=== PATIENT | female | born 1950 ===

== ENCOUNTER 2020-12-08 09:15 | Day surgery (SDC) | payer MEDICARE, OTHER ==
[~2020-12-08] VITALS: Ht 157.5 cm; Wt 54.8 kg
[2020-12-08] VITALS (10 sets, daily range): BP systolic 114–156; BP diastolic 31–62
[~2020-12-08 09:15] MED LIST: ANTACID SUSP 30 ML UDC (MYLANTA) PO PRN; BENZONATATE 100 MG (TESSALON) CAPSULE PO PRN; MELATONIN 3 MG TABLET PO PRN; MILK OF MAGNESIA 400 MG/5 ML 30 ML UDC PO PRN; NITROGLYCERIN 0.4 MG SL TABS BTL 25'S SL PRN; ONDANSETRON 4 MG/2 ML (SDV) Z0FRAN IV PRN; PATIENT MAY USE OWN MEDS, ALL PO SCH; morphine INJ 4 MG/ML 1 ML (VIAL/SYRINGE) IV PRN
[2020-12-08] MEDS ORDERED: REGADENOSON 0.4 MG/5 ML SYR (LEXISCAN) IV ONE ×2 (10:30→11:32)
--- NOTE | 2020-12-08 10:34 | Consultation-Cardiology ---
HPI-Cardiology Cardiology Consultation Date of Consultation 12/08/20 Date of Admission Time Seen by Provider: 10:15 Indication: chest pain HPI Patient is a 70 y/o female with hx of HTN, DM, tobaccoism. Presented to the ER in [place], [place] with complaints of atypical chest pain with mid to upper back pain intermittently for the past 3 days, increasing in frequency. Associated left jaw and arm pain and nausea. Denies any increased dyspnea, dizziness/lightheadedness or peripheral edema. Denies any hx of CAD. Currently denies any active chest pain. Home Medications & Allergies Allergies: Coded Allergies: amoxicillin (Verified Allergy, Unknown, 12/08/20) metformin (Verified Allergy, Unknown, 12/08/20) Home Medication List Reviewed: Yes LYS-Vhyxvu-Pdrkkt Hx Patient Social History Employed/Student: retired Smoking Status: Current Everyday Smoker Have you traveled recently?: No Alcohol Use?: No Past Medical History HTN, DM, Tobaccoism Review of Systems-General Review of Systems Constitutional: see HPI; No dizziness, No fever; malaise EENTM: see HPI, no symptoms reported; No blurred vision, No double vision Respiratory: see HPI; No dyspnea on exertion, No orthopnea Cardiovascular: see HPI, chest pain; No Hx of Intervention, No syncope Gastrointestinal: No abdominal pain Genitourinary: no symptoms reported, see HPI Musculoskeletal: see HPI, back pain, joint pain Skin: No lesions, No pruritus, No rash Psychiatric/Neurological: Denies Anxiety, Denies Depressed Reviewed Test Results Reviewed Test Results Lab Laboratory Tests Test 12/08/20 10:33 12/08/20 10:40 Range/Units Glucometer 148 H 70-110 MG/DL White Blood Count 8.7 4.3-11.0 10^3/uL Red Blood Count 4.33 3.80-5.11 10^6/uL Hemoglobin 12.5 11.5-16.0 g/dL Hematocrit 39 35-52 % Mean Corpuscular Volume 89 80-99 fL Mean Corpuscular Hemoglobin 29 25-34 pg Mean Corpuscular Hemoglobin Concent 32 32-36 g/dL Red Cell Distribution Width 12.6 10.0-14.5 % Platelet Count 284 130-400 10^3/uL Mean Platelet Volume 9.0 9.0-12.2 fL Sodium Level 136 135-145 MMOL/L Potassium Level 4.4 3.6-5.0 MMOL/L Chloride Level 99 98-107 MMOL/L Carbon Dioxide Level 25 21-32 MMOL/L Anion Gap 12 5-14 MMOL/L Blood Urea Nitrogen 25 H 7-18 MG/DL Creatinine 0.69 0.60-1.30 MG/DL Estimat Glomerular Filtration Rate 84 BUN/Creatinine Ratio 36 Glucose Level 141 H 70-105 MG/DL Calcium Level 9.8 8.5-10.1 MG/DL Troponin I < 0.028 <0.028 NG/ML Triglycerides Level 254 H <150 MG/DL Cholesterol Level 278 H < 200 MG/DL LDL Cholesterol Direct 204 H 1-129 MG/DL VLDL Cholesterol 51 H 5-40 MG/DL HDL Cholesterol 48 40-60 MG/DL Physical Exam Physical Exam Vital Signs Vital Signs - First Documented Capillary Refill : Height, Weight, BMI Height: '" Weight: lbs. oz. kg; BMI Method: General Appearance: No Apparent Distress, WD/WN HEENT: PERRL/EOMI Neck: Non Tender, Supple Respiratory: Chest Non Tender, Lungs Clear Cardiovascular: Regular Rate, Rhythm, No JVD, No Murmur Gastrointestinal: Non Tender, Soft Back: No CVA Tenderness Extremity: Non Tender, No Calf Tenderness Neurologic/Psychiatric: Alert, Oriented x3 A/P-Cardiology Admission Diagnosis Chest pain HTN DM Tobaccoism Assessment/Plan Chest pain, atypical with mid to upper back pain with associated left arm and jaw pain, nausea. Currently pain free. EKG done at [facility] reported as SR with PVCs. Initial troponin negative. I will repeat EKG. Multiple risk factors for underlying CAD, planning to evaluate stress test this morning. HTN- restart home blood pressure medications and continue to monitor. Questionable HLP, I will evaluate lipid profile DM- patient reports poor control. Management per medical services Tobaccoism- educated on the imporance of smoking cessation Fam hx CAD Thank you for allowing us to participate in the management of Ms. Newell. This is Herlinda Soler PA-C, as a scribe for Dr. Sandoval. Patient was seen and evaluated with Herlinda, has been complaining of left shoulder pain radiating to left arm and left side of her neck. Has chronic cough. No syncope or near syncopal episode. EKG did not show any acute abnormality, cardiac enzymes second set is still n ormal. We will proceed with Lexiscan Myoview stress test. Restart home medication for hypertension Noted to have hyperlipidemia with LDL 207, need to be initiated on statin. Patient is diabetic, managed by primary care physician Educated on smoking cessation. HERLINDA ARTEAGA Dec 08, 2020 10:34 HERLINDA SANDOVAL MD Dec 08, 2020 11:41
[2020-12-08 10:49] LABS: HEMATOCRIT 39 % (35-52); HEMOGLOBIN 12.5 g/dL (11.5-16.0); MEAN CORPUSCULAR HEMOGLOBIN 29 pg (25-34); MEAN CORPUSCULAR HGB CONC 32 g/dL (32-36); MEAN CORPUSCULAR VOLUME 89 fL (80-99); PLATELET COUNT 284 10^3/uL (130-400); WHITE BLOOD COUNT 8.7 10^3/uL (4.3-11.0)
[2020-12-08] MEDS ORDERED: CATHETER FLUSH 10 ML SYR IV PRN (11:00)
[2020-12-08 11:06] LABS: CHLORIDE 99 MMOL/L (98-107); POTASSIUM 4.4 MMOL/L (3.6-5.0); SODIUM 136 MMOL/L (135-145)
[2020-12-08 11:08] LABS: CALCIUM 9.8 MG/DL (8.5-10.1); TRIGLYCERIDES 254 MG/DL (<150); VLDL CHOLESTEROL 51 MG/DL (5-40)
[2020-12-08 11:09] LABS: GLUCOSE 141 MG/DL (70-105)
[2020-12-08 11:10] LABS: CARBON DIOXIDE 25 MMOL/L (21-32)
[2020-12-08 11:12] LABS: CREATININE SERUM 0.69 MG/DL (0.60-1.30); GFR ESTIMATED 84
[2020-12-08 11:13] LABS: BUN/CREATININE RATIO 36
[2020-12-08 11:14] LABS: CHOLESTEROL 278 MG/DL (< 200); HDL CHOLESTEROL 48 MG/DL (40-60)
--- NOTE | 2020-12-08 13:46 | Cardiology Stress Test Report ---
Stress Test Report Date of Procedure/Referring: Date of Procedure: Dec 08, 2020 PCP Prerna Herr MD Admitting Physician No,Local Physician Indications: CP Baseline Heart Rate: 82 Baseline Blood Pressure: Blood Pressure Systolic: 156 Blood Pressure Diastolic: 62 Baseline Vitals Vital Signs Date Time Temp Pulse Resp B/P (MAP) Pulse Ox O2 Delivery O2 Flow Rate FiO2 12/08/20 09:00 36.6 73 29 146/54 (84) 100 Nasal Cannula 2.00 Baseline EKG: Baseline EKG: NSR Summary After explaining the procedure to the patient, she signed a consent and then brought to the stress nuclear laboratory. Patient received 0.4 mg Lexiscan for stress test, ECG, heart rate and blood pressure were monitored continuously. Resting and stress dose of radio tracer were injected, imaging was acquired and reviewed in short axis, horizontal long axis and vertical long axis views. TID: 1.52 SSS: 0 SDS: 0 EF: 77 1. Patient tolerated Lexiscan well, develop shortness of breath with the Lexiscan injection resolved later in the test. 2. Transient ischemic dilatation 1.52 suggestive of multivessel coronary artery disease 3. Decreased uptake involving the whole anterior wall anterior apex and extending to the inferior wall. Mild reversibility was noted 4. Normal left ventricular size, normal contractility, ejection fraction 77% HERLINDA RHODES MD Dec 08, 2020 13:46
[2020-12-08] MEDS: ASPIRIN E.C. 81 MG (ECOTRIN) TAB PO SCH (14:08)
[2020-12-08] MEDS: inSUlin ASPART (NovoLOG) 1 UNIT/0.01 ML (CHARGE PER UNIT) SC SCH ×3 (14:08→20:45)
[2020-12-08] MEDS: NS IV 1000 ML 1,000 ML IV SCH ×2 (14:08→17:35)
--- NOTE | 2020-12-08 14:20 | Conscious Sedation/ASA ---
Conscious Sedation Pre-Proced Time 14:20 ASA Score 3 For ASA 3 and 4: Consider anesthesia and medical clearance. Also, for patients with a history of failed moderate sedation consider anesthesia. Airway Lungs Heart ASA score ASA 1: a normal healthy patient ASA 2: a patient with a mild systemic disease (mid diabetes, controlled hypertension, obesity x ASA 3: a patient with a severe systemic disease that limits activity (angina, COPD, prior Myocardial infarction) ASA 4: a patient with an incapacitating disease that is a constant threat to life (CHF, renal failure) ASA 5: a moribund patient not expected to survive 24 hrs. (ruptured aneurysm) ASA 6: a declared brain- patient whose organs are being harvested. For emergent operations, add the letter E after the classification Mallampati Classification Grade 3 Sedation Plan Analgesia, Amnesia, Plan communicated to team members, Discussed options with patient/fam, Discussed risks with patient/fam The patient is an appropriate candidate to undergo the planned procedure, sedation, and anesthesia. The patient immediately re-assessed prior to indication. HERLINDA RHODES MD Dec 08, 2020 14:20
[2020-12-08] MEDS ORDERED: LIDOCAINE 1% INJ 20 ML 20 ML VIAL ONE ×2 (14:25→15:47)
[2020-12-08] MEDS ORDERED: NS IV 1000 ML 0 ML ONE (14:25)
[2020-12-08] MEDS ORDERED: HEParin (CATH LAB) 2,000 ML IV ONE (14:25)
[2020-12-08] MEDS ORDERED: MIDAZOLAM 5 MG/5 ML (VERSED) VIAL ONE (14:48)
[2020-12-08] MEDS ORDERED: fentaNYL INJ 100 MCG/2 ML AMP ONE (14:48)
[2020-12-08] MEDS ORDERED: LISI10TA25 PO (15:20)
[2020-12-08] MEDS ORDERED: CHOL100048 PO (15:20)
[2020-12-08] MEDS ORDERED: DIPH25CA79 PO (15:20)
[2020-12-08] MEDS ORDERED: VITA100T8 PO (15:20)
[2020-12-08] MEDS ORDERED: GARL1TAB2 PO (15:20)
[2020-12-08] MEDS ORDERED: ASCO100024 PO (15:20)
[2020-12-08] MEDS ORDERED: GLBR5T PO (15:20)
[2020-12-08] MEDS ORDERED: FEXO180T84 PO (15:20)
[2020-12-08] MEDS ORDERED: ASPI325T32 PO (15:20)
[2020-12-08] MEDS ORDERED: MULT-1136 PO (15:20)
[2020-12-08] MEDS ORDERED: HEParin 1000 UNIT/ML (10ML VIAL) FOR BOLUS ONE (15:32)
[2020-12-08] MEDS ORDERED: NITRO DRIP 25000 MCG/D5W 0 ML IV ONE (15:32)
[2020-12-08] MEDS ORDERED: VERAPAMIL 5 MG/2 ML (CALAN) VIAL IV ONE (15:32)
[2020-12-08] MEDS ORDERED: PATIENT MAY USE OWN MEDS, ALL PO SCH (16:15)
--- NOTE | 2020-12-08 16:16 | Cardiac Cath Report ---
Cardiac Cath Report Physician (s)/Construction Scheduler (s) Physician HERLINDA RHODES MD Pre-Procedure Diagnosis Pre-Procedure Diagnosis: Chest pain, coronary artery disease Post-Procedure Note Procedure Start Date: Dec 08, 2020 Name of Procedure: Left heart catheterization Findings/Procedure Note PROCEDURE NOTE: 70-year-old lady with history of hypertension, hyperlipidemia, diabetes mellitus and tobaccoism, admitted with chest pain, had an abnormal stress test, scheduled for cardiac catheterization possible PTCA. After explaining the procedure to the patient, all pros and cons were explained, all questions were answered. The patient signed the consent and then she was placed on the cardiac catheterization laboratory. Groin was prepped SL fashion local anesthesia was used. Sheath placed in the right femoral artery. Seema right and left catheter were used to access the coronary system. Seema right catheter was prolapsed to the left ventricular cavity, pressure was measured, pullback LV to aorta was done. At the end of the procedure the sheath was removed. Manual pressure applied FINDINGS: Hemodynamics LV 161/18, end-diastolic pressure of 18 Aorta 157/52 mean of 92 ANATOMY: Left Main is free of obstructive disease Left Anterior Descending is slightly tortuous with 40 to 50% stenosis at the mid LAD nonobstructive disease Left Circumflex has mild disease nonobstructive disease Right Coronary Artery has 50% stenosis long lesion nonobstructive disease LV Gram was not done, pressure was measured CONCLUSION: 1. Mild to moderate coronary artery disease nonobstructive disease 2. Baseline hypertension with hypertensive changes. DISCUSSION AND RECOMMENDATION: Medical therapy is recommended no intervention is warranted, abnormal stress test is probably due to extracardiac attenuation Anesthesia Type: Conscious Sedation Estimated blood loss (mL): 15 ml Contrast Amount: 48 ml Total Radiation Dose: 207 mGy Post-Procedure Diagnosis Post-operative diagnosis: Chest pain Coronary artery disease Hypertension Hyperlipidemia Diabetes mellitus HERLINDA RHODES MD Dec 08, 2020 16:16
--- NOTE | 2020-12-08 16:23 | History & Physical-Hospitalist ---
History of Present Illness HPI/Chief Complaint Chandrika Newell is a 70 year old female with PMH HTN, T2DM, tobacco abuse, who presented with back pain. She says it started Tuesday. It started with pain in the back of her head which radiated to her neck, arms, and back. She also had associated nausea and vomiting. She denies diaphoresis. She never had chest pain or shortness of breath. She has no history of CAD. Source: patient Exam Limitations: no limitations Date Seen 12/08/20 Time Seen by a Provider: 13:45 Attending Physician Prerna Herr MD PCP No,Local Physician Referring Physician Date of Admission Dec 08, 2020 at 08:55 Home Medications & Allergies Home Medications Reviewed patient Home Medication Reconciliation performed by pharmacy medication reconciliations blood bank laboratory technician and/or nursing. Patients Allergies have been reviewed. Allergies Allergies Coded Allergies amoxicillin (Verified Allergy, Unknown, 12/08/20) metformin (Verified Allergy, Unknown, 12/08/20) Past Mgqpuoa-Ojilba-Jrtibm Hx Patient Social History Employed/Student: retired Tobacco Use?: Yes Tobacco type used: Cigarettes Smoking Status: Current Everyday Smoker Smokeless Tobacco Frequency: Never a User Use of E-Cig and/or Vaping dev: No Substance use?: No Alcohol Use?: No Pt feels they are or have been: No Immunizations Up To Date Second COVID19 Vaccination Ankur: May 2020 Current Status Advance Directives: Unable to obtain Advance Directive Location: Unable to obtain copy Communicates: Verbally Primary Language: Romansh Preferred Spoken Language: Romansh Is interpretation needed?: No Sensory deficits: Vision impairment Implanted or Applied Medical D: None Past Medical History Hypertension Diabetes, Non-Insulin dep Family Medical History No Pertinent Family Hx Review of Systems Constitutional: no symptoms reported EENTM: no symptoms reported Respiratory: no symptoms reported Cardiovascular: no symptoms reported Gastrointestinal: nausea, vomiting Genitourinary: no symptoms reported Musculoskeletal: back pain, neck pain Skin: no symptoms reported Psychiatric/Neurological: Headache Physical Exam Physical Exam Vital Signs Vital Signs - First Documented Capillary Refill : Height, Weight, BMI Height: '" Weight: lbs. oz. kg; BMI Method: General Appearance: No Apparent Distress, WD/WN HEENT: PERRL/EOMI, Pharynx Normal Neck: Normal Inspection, Supple Respiratory: Lungs Clear, Normal Breath Sounds, No Respiratory Distress Cardiovascular: Regular Rate, Rhythm, No Edema, No Murmur Gastrointestinal: Normal Bowel Sounds, Non Tender, Soft Back: Normal Inspection, No Vertebral Tenderness; No Muscle Spasm Extremity: Normal Inspection, Non Tender, No Pedal Edema Neurologic/Psychiatric: Alert, Oriented x3, No Motor/Sensory Deficits, Normal Mood/Affect Skin: Normal Color, Warm/Dry Results Results/Procedures Labs Laboratory Tests 12/08/20 10:40 Patient resulted labs reviewed. Assessment/Plan Admission Diagnosis Chest pain Admission Status: Observation Assessment and Plan Atypical chest pain Troponin within normal limits Cardiology consulted Stress test today HLD Begin Lipitor HTN T2DM Resume home meds Tobacco abuse Nicotine patch DVT prophylaxis: Lovenox Diagnosis/Problems Diagnosis/Problems (1) Atypical chest pain Status: Acute (2) HTN (hypertension) Status: Chronic (3) T2DM (type 2 diabetes mellitus) Status: Chronic (4) HLD (hyperlipidemia) Status: Acute Qualifiers: Hyperlipidemia type: mixed hyperlipidemia Qualified Codes: E78.2 - Mixed hyperlipidemia (5) Tobacco abuse Status: Chronic AMBREEN MCKEON MD Dec 08, 2020 16:23
[2020-12-08] MEDS ORDERED: ENOXAPARIN 40 MG/0.4 ML (LOVENOX) SYR SQ SCH (20:30)
[2020-12-09] VITALS: BP 105/35
[2020-12-09 04:00] VITALS: BP 127/45
[2020-12-09] MEDS: NS IV 1000 ML 1,000 ML IV SCH ×4 (04:54→10:43)
[2020-12-09] MEDS ORDERED: glyBURIDE 5 MG (MICRONASE) TAB PO SCH (07:00)
[2020-12-09] MEDS: inSUlin ASPART (NovoLOG) 1 UNIT/0.01 ML (CHARGE PER UNIT) SC SCH ×2 (07:25→10:43)
[2020-12-09 08:11] VITALS: BP 154/60
[2020-12-09] MEDS: ASPIRIN E.C. 81 MG (ECOTRIN) TAB PO SCH (08:18)
--- NOTE | 2020-12-09 08:35 | Cardiology Progress Note ---
Subjective Date Seen by Provider: Dec 09, 2020 Time Seen by Provider: 08:32 Subjective/Events-last exam Patient was seen and evaluated, sitting in bed, eating breakfast, feeling better, her arm is feeling better. Review of Systems General: No Chills, No Night Sweats, No Fatigue, No Malaise, No Appetite, No Other HEENT: No Head Aches, No Visual Changes, No Eye Pain, No Ear Pain, No Dysphasia, No Sinus Congestion, No Post Nasal Drip, No Sore Throat, No Other Pulmonary: No Dyspnea, No Cough, No Pleuritic Chest Pain, No Other Cardiovascular: No: Chest Pain, Palpitations, Orthopnea, Paroxysmal Noc. Dyspnea, Edema, Lt Headedness, Other Objective-Cardiology Exam Last Set of Vital Signs Vital Signs 12/09/20 12/09/20 08:11 08:13 Temp 36.8 Pulse 82 Resp 22 B/P (MAP) 154/60 (91) Pulse Ox 94 O2 Delivery Room Air I&O Intake and Output 12/09/20 00:00 Intake Total 600 ml Balance 600 ml Intake Oral 600 ml # Voids 6 Daily Weight Change No General: Alert, Oriented X3, Cooperative HEENT: Atraumatic, PERRLA Neck: Supple, No JVD, No Thyromegaly Lungs: Clear to Auscultation, Normal Air Movement Heart: Regular Rate, Normal S1, Normal S2, No Murmurs Abdomen: Normal Bowel Sounds, Soft, No Tenderness, No Hepatosplenomegaly, No Masses Extremities: No Clubbing, No Cyanosis, No Edema, Normal Pulses, No Tenderness/S welling Skin: No Rashes, No Breakdown, No Significant Lesion Neuro: Normal Gait, Normal Speech, Strength at 5/5 X4 Ext, Normal Tone, Sensation Intact Psych/Mental Status: Mental Status NL, Mood NL Results Lab Laboratory Tests 12/08/20 10:40 A/P-Cardiology Admission Diagnosis Chest pain HTN DM Tobaccoism Assessment/Plan Chest pain, atypical with mid to upper back pain with associated left arm and jaw pain. Feeling better. I have ordered a chest x-ray PA and lateral due to history of tobaccoism. Continue to monitor Abnormal stress test on December 08, 2020 followed by cardiac catheterization showing mild to moderate coronary artery disease nonobstructive disease. Medical therapy is recommended Hypertension, restarted on home medication, monitor blood pressure Hyperlipidemia, started on Lipitor, change in dose to 20 mg daily. DM- patient reports poor control. Management per medical services Tobaccoism- educated on the imporance of smoking cessation Fam hx CAD Okay for discharge from cardiology standpoint after her chest x-ray, follow-up as an outpatient HERLINDA RHODES MD Dec 09, 2020 08:35
[2020-12-09] MEDS ORDERED: NICOTINE PATCH REMOVAL TP SCH (08:59)
[2020-12-09] MEDS ORDERED: PANTOPRAZOLE 40 MG (PROTONIX) TAB PO SCH (09:00)
[2020-12-09] MEDS ORDERED: NICOTINE 21 MG (NICODERM) PATCH TD SCH (09:00)
[2020-12-09] MEDS ORDERED: lisINopril 10 MG (PRINIVIL) TABLET PO SCH (09:00)
--- NOTE | 2020-12-09 09:44 | Diagnostic Imaging Report ---
Indication: Back pain PA and lateral views of the chest are obtained. COMPARISON: No previous study is available for comparison at this time. FINDINGS: Heart size and pulmonary vasculature are within normal limits, and the lungs are clear, bilaterally. IMPRESSION: Unremarkable chest. Dictated by: Dictated on workstation # [id number]
[2020-12-09 11:20] VITALS: BP 156/52
[2020-12-09] MEDS ORDERED: CYCL5TAB PO (11:59)
[2020-12-09] MEDS ORDERED: ATOR20TA66 PO (11:59)
--- NOTE | 2020-12-09 13:07 | Discharge Summary ---
Discharge Summary Hospital Course Problems/Dx: (1) Atypical chest pain Status: Acute (2) HTN (hypertension) Status: Chronic (3) T2DM (type 2 diabetes mellitus) Status: Chronic (4) HLD (hyperlipidemia) Status: Acute Qualifiers: Qualified Codes: E78.2 - Mixed hyperlipidemia (5) Tobacco abuse Status: Chronic Hospital Course Date of Admission: Dec 08, 2020 at 08:55 Admission Diagnosis: Atypical chest pain Family Physician/Provider: MartinaLocal Physician Date of Discharge: 12/09/20 Discharge Diagnosis: Muscle spasms Hospital Course: Chandrika Newell is a 70 year old female with PMH HTN, T2DM, tobacco abuse, who was admitted with atypical chest pain. She was having neck, back, shoulder, and arm pains. She was having muscle spasms. She denied chest pain and shortness of breath. She underwent a stress test which was positive. She subsequently underwent a left heart catheterization which revealed nonobstructive coronary artery disease. She remained symptom free. She was given a prescription for Flexeril as needed for muscle spasms. She was discharged home in stable condition. Labs and Pending Lab Test: Laboratory Tests 12/08/20 20:32: Glucometer 202H 12/09/20 06:29: Glucometer 195H 12/09/20 10:36: Glucometer 169H Home Meds Active Cyclobenzaprine HCl 5 Mg Tablet 5 Mg PO TID PRN 7 Days Atorvastatin Calcium 20 Mg Tablet 20 Mg PO HS 30 Days Reported Kriss Allergy (Fexofenadine HCl) 180 Mg Tablet 180 Mg PO DAILY PRN Benadryl (Diphenhydramine HCl) 25 Mg Capsule 50 Mg PO HS Vitamin D3 (Cholecalciferol (Vitamin D3)) 25 Mcg Capsule 25 Mcg PO DAILY Multivitamin 1 Each Tablet 1 Each PO DAILY Vitamin E (Vitamin E Mixed) 100 Unit Tablet 100 Unit PO DAILY Garlic 1 Each Tablet 2 Each PO DAILY Vitamin C (Ascorbic Acid) 1,000 Mg Tablet 1,000 Mg PO DAILY Aspirin EC (Aspirin) 325 Mg Tablet. 325 Mg PO DAILY Lisinopril 10 Mg Tablet 10 Mg PO DAILY Glyburide 5 Mg Tablet 5 Mg PO DAILY Assessment/Pt Instructions Take medications as prescribed. Follow up with your PCP. Return with worsening chest pain, shortness of breath, or if you feel like you are getting worse. Discharge Planning: <30 minutes discharge planning Discharge Instructions Discharge Diet: Low Sodium Diet Activity as Tolerated: Yes Consultations Cardiology Discharge Physical Examination Vital Signs Vital Signs Date Time Temp Pulse Resp B/P (MAP) Pulse Ox O2 Delivery O2 Flow Rate FiO2 12/09/20 11:20 37.1 75 18 156/52 (86) 96 Room Air 12/09/20 04:00 2.00 General Appearance: No Apparent Distress, WD/WN HEENT: PERRL/EOMI, Pharynx Normal Respiratory: Lungs Clear, Normal Breath Sounds, No Respiratory Distress Cardiovascular: Regular Rate, Rhythm, No Edema, No Murmur Gastrointestinal: Normal Bowel Sounds, Non Tender, Soft Extremity: Normal Inspection, Non Tender, No Pedal Edema Skin: Normal Color, Warm/Dry Neurologic/Psychiatric: Alert, Oriented x3, No Motor/Sensory Deficits, Normal Mood/Affect Allergies: Coded Allergies: amoxicillin (Verified Allergy, Unknown, 12/08/20) metformin (Verified Allergy, Unknown, 12/08/20) Discharge Summary Date of Admission Dec 08, 2020 at 08:55 Date of Discharge Discharge Date: Dec 09, 2020 Discharge Time: 09:40 Admission Diagnosis Chest pain Consults/Procedures Consulations Cardiology Procedures Stress test, left heart catheterization Discharge Diagnosis Muscle spasms (1) Muscle spasm of back Status: Acute (2) Atypical chest pain Status: Acute (3) HTN (hypertension) Status: Chronic (4) T2DM (type 2 diabetes mellitus) Status: Chronic (5) HLD (hyperlipidemia) Status: Acute Qualifiers: Qualified Codes: E78.2 - Mixed hyperlipidemia (6) Tobacco abuse Status: Chronic AMBREEN MCKEON MD Dec 09, 2020 12:48
== END 2020-12-09 12:49 | disposition home or self-care (01) ==
LOC: CATH 09:15 → CSD 09:15 → UNDODISOB 12-09 12:49 → CATH 12-09 12:49
PROVIDERS: ATTEND Family Medicine
DX: I25.10 Atherosclerotic heart disease of native coronary artery without angina pectoris (principal); I10 Essential (primary) hypertension; E11.9 Type 2 diabetes mellitus without complications; E78.5 Hyperlipidemia, unspecified; E78.2 Mixed hyperlipidemia; F17.210 Nicotine dependence, cigarettes, uncomplicated; Z86.718 Personal history of other venous thrombosis and embolism
CPT/HCPCS: 71046; 78452; 80048; 80061; 82947 ×2; 84484; 85027; 93005; 93017; 93306; 93458; A9502; C1894; G0378; G0379; 36415